=== PATIENT | female | born 2000 | race Caucasian/White ===

== ENCOUNTER 2024-08-28 06:21 | Emergency (ER) | payer BC, SELFPAY ==
[2024-08-28 06:24] VITALS: BP 144/100
--- NOTE | 2024-08-28 07:12 | ED.GENMED ---
History of Present Illness
General
Chief Complaint: Crisis Evaluation
Source: patient
Exam Limitations: none
Time Seen by Provider: 08/28/24 07:06
History of Present Illness
History of Present Illness:
24-year-old female currently on no medications with history of anxiety and ADHD presents stating that she may be having a psychotic break. She feels as though she is not in a true reality. She hears things that may or may not be happening. She
states she has built-up anger and the anger builds up to the point yesterday where she thought about hurting herself. She did not have a specific plan. She wanted to throw things. She is confused as far as what is actually real. She denies any
recent fever cough chest pain or shortness of breath. She currently does not take any medications but was on Risperdal and Concerta as of this November.
Phy Exam
Physical Exam
Physical Exam:
General: Well-appearing female no acute respiratory distress HEENT: Normocephalic atraumatic
Heart: Regular rate and rhythm no murmurs
Lungs: Clear no wheeze
Psychiatric exam: Calm and cooperative. Describes hearing her license when she goes to the gas station. She describes that she is seeing people moving faster than what is humanly possible. She does occasionally speak with a pressured rate of
speech. Denies thoughts of harming others. Admits to having thoughts of hurting herself yesterday but did not have any specific plan
Extremities: No cyanosis
Course
Orders/Labs/Results
Orders:
Orders
08/28/24 06:29
1:1 Observation - Suicide/ Violent Behavior As Directed
Crisis Consult Urgent
Reason for Consult: INTERNAL ANGER, CONFUSION
Vital Signs
Initial and Last Documented VS:
Initial Vital Signs
Temp Pulse Resp BP Pulse Ox
97.4 F 65 18 144/100 100
08/28/24 06:24 08/28/24 06:24 08/28/24 06:24 08/28/24 06:24 08/28/24 06:24
Last Documented Vital Signs
Temp Pulse Resp BP Pulse Ox
97.4 F 65 16 116/88 98
08/28/24 06:24 08/28/24 07:53 08/28/24 07:53 08/28/24 07:53 08/28/24 07:53
MDM/Problems Addressed
Differential Diagnosis Includes:
Patient here with request to speak with the mental health department. Her vital signs are stable. Offered blood work however she declined until speaking with the crisis department.
*Critical Care Note
Total Time (30-74mins, 75-104mins- exclusive of procedures): Not Applicable
Update Note
Update Note:
Crisis saw the patient. It was deemed she is not in any imminent danger to herself or others. Patient requested psychiatry evaluation. Spoke with psychiatry. They do not feel she warrants emergent psychiatry consultation. Crisis did offer her
outpatient resources or even telepsych however she states she wanted to see someone in person. At this point she is expressing her desire to leave. No indication to keep the patient here. She is not at risk for harming herself or others.
Discussed with ED attending.
ED Attending Note
-
Portions of this chart may have been created with voice recognition software.� Occasional wrong word or��sound alike� substitutions may have occurred due to the inherent limitations of voice recognition software.
Discharge Plan
Departure
Patient Disposition: Home (Routine Discharge)
Date of Disposition: 08/28/24
Time of Disposition: 08:18
Patient with high blood pressure during this ER visit?: No
Discharge Problem:
Agitation
Instructions: Anxiety, Adult (DC)
Activity Restrictions/Additional Instructions:
Please return here for any concerning symptoms. Please use outpatient resources provided to you by the crisis department.
Interventions
Interventions:
*Risk Screen - Suicide Last Done: 08/28/24 06:24
*Neglect/Abuse Screening Last Done: 08/28/24 06:24
ED- Fall Risk Assessment Last Done: 08/28/24 07:53
ED-Psychological Assessment Last Done: 08/28/24 07:53
Discharge Date and Time
Print Language: INDONESIAN
[2024-08-28 07:53] VITALS: BP 116/88
== END 2024-08-28 09:30 | disposition home or self-care (01) ==
LOC: EMR 06:21
PROVIDERS: EMERGENCY PHYSICIAN Emergency Medicine
DX: R45.1 Restlessness and agitation (principal); R41.0 Disorientation, unspecified; R45.851 Suicidal ideations; R44.0 Auditory hallucinations; R44.1 Visual hallucinations; F41.9 Anxiety disorder, unspecified; F90.9 Attention-deficit hyperactivity disorder, unspecified type
CPT/HCPCS: 99283